=== PATIENT | male | born 1990 | race Caucasian/White ===

== ENCOUNTER 2021-03-01 09:35 | Emergency (ER) | payer BC ==
[2021-03-01 10:40] LABS: HEMOGLOBIN 16.1 gm/dl (14.0-17.5); RED BLOOD COUNT 5.22 M/UL (4.20-5.50)
[2021-03-01 10:57] LABS: BUN/CREATININE RATIO 11 (0-10)
[2021-03-01] MEDS ORDERED: ZOFRAN4 MG PO (14:18)
== END 2021-03-01 14:33 | disposition home or self-care (01) ==
LOC: ER1 09:35
PROVIDERS: Physician Assistant Medical
DX: N13.2 Hydronephrosis with renal and ureteral calculous obstruction (principal); R79.1 Abnormal coagulation profile; Z88.6 Allergy status to analgesic agent
CPT/HCPCS: 80053; 81001; 85025; 85610; 96374; 99284; J3430